=== PATIENT | female | born 1995 | race Two or more races ===

== ENCOUNTER 2022-11-04 15:49 | Emergency (ER) | payer OTHER ==
[~2022-11-04] VITALS: Ht 170.2 cm; Wt 54.0 kg
== END 2022-11-04 17:35 | disposition home or self-care (01) ==
LOC: ER 15:49
DX: L50.8 Other urticaria (principal)

== ENCOUNTER 2023-04-05 16:43 | Emergency (ER) | payer OTHER ==
[~2023-04-05] VITALS: Ht 172.7 cm; Wt 52.2 kg
[2023-04-05] MEDS ORDERED: CARAFATE1 GM PO (20:36)
[2023-04-05] MEDS ORDERED: PEPCID AC20 MG PO (20:36)
== END 2023-04-05 20:38 | disposition home or self-care (01) ==
LOC: ER 16:43
DX: K29.70 Gastritis, unspecified, without bleeding (principal)

== ENCOUNTER 2024-11-10 21:25 | Emergency (ER) | payer OTHER ==
[~2024-11-10] VITALS: Ht 172.7 cm; Wt 52.2 kg
[~2024-11-10 21:25] MED LIST: CARAFATE1 GM PO; PEPCID AC20 MG PO
[2024-11-10] MEDS ORDERED: FAMOTIDINE/PF 20 MG in 0.9 % SODIUM CHLORIDE 8 ML IV PUSH STA (21:42)
[2024-11-10] MEDS ORDERED: 0.9 % SODIUM CHLORIDE 1,000 ML IV ONE (21:45)
[2024-11-10] MEDS ORDERED: ONDANSETRON HCL 2 MG/ML VIAL IV ONE (21:45)
[2024-11-10] MEDS ORDERED: FAMOTIDINE/PF 20 MG/2 ML VIAL ONE (22:01)
[2024-11-10] MEDS ORDERED: ONDANSETRON HCL 2 MG/ML VIAL ONE (22:01)
[2024-11-10 23:09] LABS: HEMOGLOBIN 12.5 g/dL (12.0-15.00); MEAN CORPUSCULAR HGB CONC 33.7 g/dl (32.0-36.0); PLATELET COUNT 273 K/uL (150-450); RED BLOOD COUNT 4.16 M/uL (4.00-6.00); RED CELL DISTRIBUTION WIDTH 14.9 % (11.5-14.5)
[2024-11-10] MEDS ORDERED: ONDANSETRON ODT8 MG PO (23:36)
[2024-11-10 23:45] LABS: ALBUMIN 4.4 gm/dL (3.4-5.0); BILIRUBIN TOTAL 0.68 mg/dL (0.3-1.2); CALCIUM 9.7 mg/dL (8.5-10.1); CREATININE SERUM 0.78 mg/dL (0.55-1.02); GFR 87.32; GLOBULINA 3.7 G/DL (2.4-3.5); POTASSIUM 3.5 mEq/L (3.5-5.1); TOTAL PROTEIN 8.1 gm/dL (6.4-8.2)
== END 2024-11-11 | disposition home or self-care (01) ==
LOC: ER 21:27
PROVIDERS: General Practice
DX: R11.2 Nausea with vomiting, unspecified (principal); J10.1 Influenza due to other identified influenza virus with other respiratory manifestations; R11.10 Vomiting, unspecified